=== PATIENT | male | born 1985 | race Hispanic/Latino ===

== ENCOUNTER 2017-07-18 08:44 | Emergency (ER) | payer OTHER ==
[2017-07-18 09:05] VITALS: BP 123/77; PULSE 59; TEMP 97; O2SAT 97; BMI 27.1
[2017-07-18] MEDS ORDERED: Lidocaine 5% Patch TD STA (10:03)
--- NOTE | 2017-07-18 10:56 | ED PDOC ---
HPI: Back Time Seen by Provider: 07/18/17 09:02 Chief Complaint (Nursing): Back Pain Chief Complaint (Provider): Back Pain History Per: Patient History/Exam Limitations: no limitations Onset/Duration Of Symptoms: Days (past several days) Current Symptoms Are (Timing): Still Present Additional Complaint(s): Zuhair Powell is a 31 year old male presenting to the ED for an evaluation of lower back pain radiating down his buttocks to legs occurring since this morning. He states the pain is mainly localized to his left side, but does feel some pain on his right side. He reports bowel movement this morning. The patient states his back problems have been a recent issue and he has not had this problem over the past several years. He applied an icy-hot patch to the area. He denies trauma, injury, heavy lifting, fever, urinary symptoms, loss of power, weakness, numbness, urinary retention, or incontinence. PMD: Provider TBD Past Medical History Reviewed: Historical Data, Nursing Documentation, Vital Signs Vital Signs: Last Vital Signs Temp 97 F L 07/18/17 08:49 Pulse 59 L 07/18/17 08:49 Resp BP 123/77 07/18/17 08:49 Pulse Ox 97 07/18/17 08:49 - Medical History PMH: Back Problems - Surgical History Surgical History: No Surg Hx - Family History Family History: States: Unknown Family Hx - Social History Drugs: Denies - Home Medications Home Medications: Ambulatory Orders Medication Instructions Recorded Cyclobenzaprine [Cyclobenzaprine 10 mg PO Q8 PRN #9 tab 07/18/17 HCl] Lidocaine 5% [Lidoderm] 1 ea TD DAILY #6 patch 07/18/17 Naproxen [Naprosyn] 500 mg PO BID PRN #14 tablet 07/18/17 traMADol [Ultram] 50 mg PO TID PRN #10 tab 07/18/17 - Allergies Allergies/Adverse Reactions: Allergies Allergy/AdvReac Type Severity Reaction Status Date / Time No Known Allergies Allergy Verified 07/18/17 09:26 Review of Systems ROS Statement: Except As Marked, All Systems Reviewed And Found Negative Genitourinary Male: Negative for: Dysuria, Frequency, Incontinence, Hematuria Musculoskeletal: Positive for: Back Pain (radiating down to buttocks and legs) Neurological: Negative for: Weakness, Numbness Physical Exam - Reviewed Nursing Documentation Reviewed: Yes Vital Signs Reviewed: Yes - Physical Exam Appears: Positive for: Non-toxic, No Acute Distress Head Exam: Positive for: ATRAUMATIC, NORMOCEPHALIC Skin: Positive for: Normal Color, Warm, Dry Eye Exam: Positive for: Normal appearance Neck: Positive for: Normal Respiratory: Negative for: Respiratory Distress Back: Positive for: Other (tenderness along left lower back and buttocks area). Negative for: Vertebral Tenderness Extremity: Positive for: Normal ROM (full ROM and strength of lower extremities) Neurologic/Psych: Positive for: Alert, Oriented (x3) - ECG O2 Sat by Pulse Oximetry: 97 (RA) Pulse Ox Interpretation: Normal Medical Decision Making Medical Decision Making: Time: 09:02 Impression: Back Pain Differential diagnosis includes but is not limited to Lumbalgia Plan: * Initiate Analgesia * Flexeril 10 mg PO * Lidoderm 1 ea TD * Toradol 30 mg IM * Tylenol 650 mg PO * Reevaluation * [id number]- re-eval: got dressed on own, ambulated to bathroom, no weakness/numbness, feeling better. Exlplained recommendations in detail and need for absolute followup w PMD/ortho/ physiatry. He's from [place] and will followup in [place]. Rx medications for analgesia and muscle relaxation. No driving or operating machinery while taking muscle relaxants or pain medication. [employer] database query revealed no controlled substances under name/. Scribe Attestation: Documented by Margarita Puente, acting as a scribe for Arsh Cuenca DO. Provider Scribe Attestation: All medical record entries made by the Scribe were at my direction and personally dictated by me. I have reviewed the chart and agree that the record accurately reflects my personal performance of the history, physical exam, medical decision making, and the department course for this patient. I have also personally directed, reviewed, and agree with the discharge instructions and disposition. Disposition - Clinical Impression Clinical Impression: Back pain - Patient ED Disposition Is Patient to be Admitted: No Counseled Patient/Family Regarding: Studies Performed, Diagnosis, Need For Followup, Rx Given - Disposition Referrals: Anand Sargent DO [[facility]] - Disposition: Routine/Home Disposition Time: 11:25 Condition: STABLE Additional Instructions: Gentle range of motion recommended. Use medications as directed. See sports medicine physician, primary doctor, remedial project manager or orthopedist for further testing if symptoms persist. Prescriptions: Cyclobenzaprine [Cyclobenzaprine HCl] 10 mg PO Q8 PRN #9 tab PRN Reason: Muscle Spasm Lidocaine 5% [Lidoderm] 1 ea TD DAILY #6 patch Naproxen [Naprosyn] 500 mg PO BID PRN #14 tablet PRN Reason: Pain, Moderate (4-7) traMADol [Ultram] 50 mg PO TID PRN #10 tab PRN Reason: Pain, Moderate (4-7) Instructions: Acute Low Back Pain (ED) Forms: [employer] - teamwork across [employer] (C[place]an)
[2017-07-18] MEDS ORDERED: Lidocaine 5% Patch TD ONE (11:20)
== END 2017-07-18 11:46 | disposition home or self-care (01) ==
LOC: H.ER 08:44
DX: M54.9 Dorsalgia, unspecified (principal)
CPT/HCPCS: 96372; 99282; J1885